=== PATIENT | male | born 1995 | race Hispanic/Latino ===

== ENCOUNTER 2018-04-09 20:38 | Emergency (ER) | payer SELFPAY | END 2018-04-09 21:48 | disposition home or self-care (01) | LOC: EDH 20:38 | DX: H66.91 Otitis media, unspecified, right ear (principal); J45.909 Unspecified asthma, uncomplicated ==

== ENCOUNTER 2020-04-17 02:24 | Emergency (ER) | payer SELFPAY ==
[2020-04-17 03:17] LABS: ABG OXYGEN SATURATION 90.4 % (95.0-99.0); BASE EXCESS,VENOUS BLOOD GAS -3.9 (-2.0-3.0); HCO3,VENOUS BLOOD GAS 20.4 (21.0-28.0); PCO2,VENOUS BLOOD GAS 35 (35-48); PH,VENOUS BLOOD GAS 7.379 (7.350-7.450)
[2020-04-17] MEDS ORDERED: DiphenhydrAMINE HCL 50 MG/ML VIAL ONE (03:17)
== END 2020-04-17 04:56 | disposition home or self-care (01) ==
LOC: EDH 02:24
DX: E86.9 Volume depletion, unspecified (principal); R06.4 Hyperventilation; F43.9 Reaction to severe stress, unspecified; J45.909 Unspecified asthma, uncomplicated
CPT/HCPCS: 36600; 71045; 82803; 93005; 96361; 96374; 99285; J1200

== ENCOUNTER 2022-10-24 23:36 | Emergency (ER) | payer BC ==
[~2022-10-24] VITALS: Ht 172.7 cm; Wt 127.9 kg
[2022-10-25] MEDS ORDERED: ALBU90AE2 IH (00:46)
[2022-10-25] MEDS ORDERED: OSEL75 PO (00:46)
[2022-10-25 00:50] VITALS: BP 120/74
== END 2022-10-25 01:03 | disposition home or self-care (01) ==
LOC: EDH 23:36
DX: J10.1 Influenza due to other identified influenza virus with other respiratory manifestations (principal); Z20.822 Contact with and (suspected) exposure to COVID-19; J45.909 Unspecified asthma, uncomplicated; Z98.890 Other specified postprocedural states
CPT/HCPCS: 99283; 71045; 87635; 87804 ×2; C9803